=== PATIENT | female | born 1995 | race Caucasian/White ===

== ENCOUNTER 2018-01-21 05:44 | Inpatient (IN) ==
[2018-01-16 12:11] LABS: Basophils # 0.1 10*3/uL (0.0-0.2); Eosinophils # 0.4 10*3/uL (0.0-0.87); Eosinophils % 5.4 % (0.00-10.9); Hemoglobin 12.8 GM/DL (12.0-16.0); Immature Granulocytes % 0.4 %; Immature Granulocytes Absolute 0.03 #; Lymphocytes # 2.2 10*3/uL (1.4-4.0); Lymphocytes % 27.6 % (21.3-54.2); Mean Corpuscular HGB Conc 33.7 GM/DL (32-36); Mean Corpuscular Hemoglobin 31 PG (27-34); Mean Corpuscular Volume 90.5 FL (87-102); Mean Platelet Volume 10.7 FL (9.6-12.0); Monocytes # 0.7 10*3/uL (0.11-0.8); Monocytes % 8.4 % (1.7-12.7); Neutrophils # 4.5 10*3/uL (1.4-7.4); Neutrophils % 57.2 % (38.7-73.9); Platelet Count 276 T/CUMM (130-400); Red Cell Distribution Width 12.7 % (9.3-17.3); White Blood Count 7.9 T/CUMM (4-12)
[2018-01-16 12:34] LABS: Calcium 8.7 MG/DL (8.5-10.1); Osmolality,Calculated 272.7 MOS/KG (273-304); Potassium 4.2 MMOL/L (3.5-5.1)
[2018-01-21] MEDS ORDERED: DIAZEPAM 5 MG TABLET PO ONE (06:40)
[2018-01-21] MEDS ORDERED: FAMOTIDINE 20 MG TABLET PO ONE (06:40)
[2018-01-21] MEDS ORDERED: SCOPOLAMINE 1.5 MG PATCH TRANSDERM ONE (06:40)
[2018-01-21] MEDS ORDERED: LACTATED RINGERS 1,000 ML IV SCH (07:00)
[2018-01-21] MEDS ORDERED: LIDOCAINE 1%/EPI INJ 20 ML VIAL ONE (07:05)
[2018-01-21] MEDS ORDERED: BUPIVACAINE MPF 0.25% /EPI 30 ML VIAL ONE (07:05)
[2018-01-21] MEDS ORDERED: MICROFIBRILLAR COLLAGEN POWDER 1 GM CAN TOP ONE (08:18)
[2018-01-21] MEDS ORDERED: TISSUE ADHESIVE 1 EACH APPLICATOR TOP ONE (08:43)
[2018-01-21] MEDS ORDERED: ONDANSETRON 4 MG/2 ML VIAL IV PRN ×2 (09:05→09:09)
[2018-01-21] MEDS ORDERED: MORPHINE 4 MG/1 ML VIAL IV PRN (09:09)
[2018-01-21] MEDS ORDERED: PROPOFOL 200 MG/20 ML VIAL IV ONE (09:14)
[2018-01-21] MEDS ORDERED: ONDANSETRON 4 MG/2 ML VIAL ONE (09:15)
[2018-01-21] MEDS ORDERED: MIDAZOLAM 2 MG/2 ML VIAL ONE (09:15)
[2018-01-21] MEDS ORDERED: DEXAMETHASONE 10 MG/1 ML VIAL ONE (09:15)
[2018-01-21] MEDS ORDERED: SEVOFLURANE 1 UNIT/15 MINUTE INH ONE (09:15)
[2018-01-21] MEDS ORDERED: KETOROLAC 30 MG/1 ML VIAL ONE (09:15)
[2018-01-21] MEDS ORDERED: ACETAMINOPHEN 1,000 MG/100 ML VIAL IV ONE (09:15)
[2018-01-21] MEDS ORDERED: fentaNYL 100 MCG/2 ML VIAL ONE (09:15)
[2018-01-21] MEDS ORDERED: PHENYLEPHRINE 1 MG/10 ML SYRINGE IV ONE (09:15)
[2018-01-21] MEDS ORDERED: SUCCINYLCHOLINE 200 MG/10 ML VIAL ONE (09:16)
[2018-01-21] MEDS: HYDROmorphone 2 MG/1 ML VIAL IV PRN ×4 (09:20→09:35)
[2018-01-22 08:23] LABS: Troponin I Only < 0.015 NG/ML (0.00-0.045)
[2018-01-22] MEDS: PANTOPRAZOLE 40 MG VIAL IV SCH ×2 (10:16→20:28)
[2018-01-23] MEDS ORDERED: traMADol 50 MG TABLET PO PRN (07:35)
[2018-01-23] MEDS ORDERED: LIDOCAINE 2% 5 ML VIAL ONE (09:00)
[2018-01-23] MEDS ORDERED: PROPOFOL 200 MG/20 ML VIAL IV ONE (09:00)
[2018-01-23] MEDS: PANTOPRAZOLE 40 MG VIAL IV SCH (11:09)
[2018-01-23 12:20] VITALS: BP 113/61
== END 2018-01-23 13:40 | disposition home or self-care (01) | DRG 627 ==
LOC: N.OR 05:44 → N.SDSINP 05:50 → N.4E 10:04
PROVIDERS: ADMIT Surgery; ATTEND Surgery